=== PATIENT | female | born 1980 | race Caucasian/White ===

== ENCOUNTER 2017-05-16 18:59 | Emergency (ER) | payer MEDICAID ==
[2017-05-16 19:04] VITALS: BP 125/80
[2017-05-16] MEDS ORDERED: IBUPROFEN 600 MG TABLET PO ONE (19:14)
--- NOTE | 2017-05-16 19:20 | ER Document Report ---
ED Medical Screen (RME) - General Chief Complaint: Rib Pain Stated Complaint: FALL/RIB PAIN Time Seen by Provider: 05/16/17 19:07 Notes: The patient is a 36-year-old female, past medical history endometriosis, possible seizures, presents with right-sided chest and back pain after she tripped coming off the beach and landed on her cooler. Her daughter said that she lost consciousness and may have had a seizure after the injury. She did not hit her head and denies abdominal pain, shortness of breath, nausea, vomiting, difficulty walking, numbness, tingling or blurry vision. PE: NAD. Lungs CTAB. RRR. Superficial abrasions over left conte. I have greeted and performed a rapid initial assessment of this patient. A comprehensive ED assessment and evaluation of the patient, analysis of test results and completion of the medical decision making process will be conducted by additional ED providers. TRAVEL OUTSIDE OF THE [place] IN LAST 30 DAYS: No - Related Data Allergies/Adverse Reactions: lamotrigine [From Lamictal] Allergy (Verified 05/16/17 19:07) seizures, blisters in throat/mouth, rash Past Medical History - Social History Chew tobacco use (# tins/day): No Frequency of alcohol use: None Drug Abuse: None - Past Medical History Cardiac Medical History: Denies: Hx Coronary Artery Disease, Hx Heart Attack, Hx Hypertension Pulmonary Medical History: Denies: Hx Asthma, Hx Bronchitis, Hx COPD, Hx Pneumonia Neurological Medical History: Reports: Hx Seizures - Grand mal seizure x1 from allerigic reaction to lamictal. Denies: Hx Cerebrovascular Accident Renal/ Medical History: Denies: Hx Peritoneal Dialysis Musculoskeltal Medical History: Denies Hx Arthritis Past Surgical History: Reports: Hx Cholecystectomy - Immunizations Hx Diphtheria, Pertussis, Tetanus Vaccination: Yes Physical Exam - Vital signs Vitals: Temp Pulse Resp BP Pulse Ox 98.4 F 74 16 125/80 100 05/16/17 19:02 05/16/17 19:02 05/16/17 19:02 05/16/17 19:02 05/16/17 19:02 Course - Vital Signs Vital signs: Temp Pulse Resp BP Pulse Ox 98.4 F 74 16 125/80 100 05/16/17 19:02 05/16/17 19:02 05/16/17 19:02 05/16/17 19:02 05/16/17 19:02
[2017-05-16] MEDS ORDERED: LIDOCAINE 5% (700 MG) TRANSDERMAL ADH..PATCH TP ONE (19:47)
--- NOTE | 2017-05-16 19:47 | ER Document Report ---
ED General - General Mode of Arrival: Wheelchair Information source: Patient TRAVEL OUTSIDE OF THE [place] IN LAST 30 DAYS: No - HPI Onset: Just prior to arrival <NIKO MEJIA - Last Filed: 05/16/17 23:25> <NOEL GANNON - Last Filed: 05/16/17 23:32> - General Chief Complaint: Rib Pain Stated Complaint: FALL/RIB PAIN Time Seen by Provider: 05/16/17 19:07 - HPI Notes: Patient is a 36-year-old female presented emergency department for right-sided chest and back pain after a fall. Patient states that she was leaving the beach and she tripped when trying to go up stairs. Patient states that she fell into a cooler on the right side of her body. Patient was able to get up and make it to the parking lot however when she reached the parking lot she had a possible syncopal event. Patient was brought to the emergency department by her boyfriend and she states she was conscious for this. Patient's pain is sharp. Patient did not hit her head. Patient does have an abrasion over her left conte and she complains of some lightheadedness. Patient ate this morning and states she drank water at the beach. Patient has some increased pain with deep breathing. Patient denies any abdominal pain, nausea, vomiting, difficulty ambulating, tingling, blurry vision or other complaints. Patient is allergic to lamotrigine and states she had a seizure from taking this medication. Patient also has a history of POTS and endometriosis. (NIKO MEJIA) - Related Data Allergies/Adverse Reactions: lamotrigine [From Lamictal] Allergy (Verified 05/16/17 19:07) seizures, blisters in throat/mouth, rash Past Medical History - General Information source: Patient - Social History Smoking Status: Current Every Day Smoker Chew tobacco use (# tins/day): No Smoking Education Provided: Yes - > 5 minutes Frequency of alcohol use: None Drug Abuse: None - Past Medical History Cardiac Medical History: Denies: Hx Coronary Artery Disease, Hx Heart Attack, Hx Hypertension Pulmonary Medical History: Denies: Hx Asthma, Hx Bronchitis, Hx COPD, Hx Pneumonia Neurological Medical History: Reports: Hx Seizures - Grand mal seizure x1 from allerigic reaction to lamictal. Denies: Hx Cerebrovascular Accident Renal/ Medical History: Denies: Hx Peritoneal Dialysis Musculoskeltal Medical History: Denies Hx Arthritis Past Surgical History: Reports: Hx Cholecystectomy - Immunizations Hx Diphtheria, Pertussis, Tetanus Vaccination: Yes <NIKO MEJIA - Last Filed: 05/16/17 23:25> - Social History Family History: None <SANDRAMARCUSNOEL - Last Filed: 05/16/17 23:32> Review of Systems - Review of Systems Constitutional: No symptoms reported EENT: No symptoms reported Cardiovascular: See HPI, Chest pain Respiratory: No symptoms reported Gastrointestinal: No symptoms reported Genitourinary: No symptoms reported Female Genitourinary: No symptoms reported Musculoskeletal: See HPI, Back pain Skin: See HPI, Other - abrasion Hematologic/Lymphatic: No symptoms reported Neurological/Psychological: No symptoms reported -: Yes All other systems reviewed and negative <NIKO MEJIA - Last Filed: 05/16/17 23:25> Physical Exam - Vital signs Interpretation: Normal <NIKO MEJIA - Last Filed: 05/16/17 23:25> <NOEL GANNON - Last Filed: 05/16/17 23:32> - Vital signs Vitals: Temp Pulse Resp BP Pulse Ox 98.4 F 74 16 125/80 100 05/16/17 19:02 05/16/17 19:02 05/16/17 19:02 05/16/17 19:02 05/16/17 19:02 - Notes Notes: GENERAL: Alert, interacts well. No acute distress. HEAD: Normocephalic, atraumatic. EYES: Pupils equal, round, and reactive to light. Extraocular movements intact. ENT: Oral mucosa moist, tongue midline. NECK: Full range of motion. Supple. Trachea midline. LUNGS: Clear to auscultation bilaterally, no wheezes, rales, or rhonchi. No respiratory distress. Tenderness with palpation over the right mid clavicular line and rib #3. No ecchymosis or abrasions to the anterior chest. HEART: Regular rate and rhythm. No murmurs, gallops, or rubs. ABDOMEN: Soft, non-tender. Non-distended. Bowel sounds present in all 4 quadrants. BACK: Tenderness with palpation just laterally to the right side of the spine and around rib #4. EXTREMITIES: Moves all 4 extremities spontaneously. No edema, radial and dorsalis pedis pulses 2/4 bilaterally. No cyanosis. NEUROLOGICAL: Alert and oriented x3. Normal speech. PSYCH: Normal affect, normal mood. SKIN: Warm, dry, normal turgor. Superficial abrasion to the left calf, 12 cm long with no deformity. (NIKO MEJIA) Course <NIKO MEJIA - Last Filed: 05/16/17 23:25> <NOEL GANNON - Last Filed: 05/16/17 23:32> - Re-evaluation Re-evalutation: 05/16/17 20:39 No fractures and no pneumothorax is seen, pain treated with Lidoderm patch, consistent with bruised ribs. Abrasion on the left conte was cleaned and dressed with antibiotic ointment and gauze. Patient is discharged to home with muscle relaxers, ibuprofen and Lidoderm patches. Counseled on the need to take deep breaths to prevent pneumonia and atelectasis. (NOEL GANNON) - Vital Signs Vital signs: Temp Pulse Resp BP Pulse Ox 98.4 F 74 16 125/80 100 05/16/17 19:02 05/16/17 19:02 05/16/17 19:02 05/16/17 19:02 05/16/17 19:02 - EKG Interpretation by Me Additional EKG results interpreted by me: 05/16/17 20:42 EKG shows sinus rhythm at a rate of 61, normal axis, normal intervals, no ST segment elevations or depressions, there are T-wave inversions noted in V2 which are nonspecific per my interpretation. (NOEL GANNON) Discharge <NIKO MEJIA - Last Filed: 05/16/17 23:25> <NOEL GANNON - Last Filed: 05/16/17 23:32> - Discharge Clinical Impression: Abrasion, left lower leg, initial encounter, Tobacco abuse, Tobacco abuse counseling Contusion of rib on right side Qualifiers: Encounter type: initial encounter Qualified Code(s): S20.211A - Contusion of right front wall of thorax, initial encounter Condition: Stable Disposition: HOME, SELF-CARE Additional Instructions: Rib Contusion You have been diagnosed as having bruised ribs. It will usually take a few weeks for these injured ribs to heal. You should cough or take a deep breath at least every hour or two to prevent lung complications. You should not engage in any strenuous physical activity until released by your physician. The usual rule is "if it hurts, don' t do it." Return if you develop any of the following: (1) Fever or chills. (2) Persistent cough, coughing up blood, or shortness of breath. (3) Increasing pain. (4) Weakness, lightheadedness, or fainting. Abrasions An abrasion is a scraping injury of the skin. Some scarring may result. The seriousness of an abrasion is not always obvious at first. Hidden tissue damage may be present and infection may occur despite proper care. Complete healing may take from ten days to as long as a month. The healing time depends on the depth of the abrasion, and on the amount of crushing of underlying tissues from the injury. Keep the wound and dressing clean. Do not shower or bathe the area until okayed by the doctor. If the dressing gets wet, remove it and blot the wound dry, then reapply a clean dressing. Dressings should be changed every day. Sunscreen should be used for six months after the skin is healed. If any signs of infection occur (swelling, redness, increasing tenderness, red streaks, profuse purulent drainage from the abrasion, tender lumps in the armpit or groin above the abrasion, or fever), see the doctor immediately. Please use ibuprofen (Motrin or Advil) 600-800 mg every 8 hours as needed for pain. You may also use acetaminophen (Tylenol) 1000 mg every 4-6 hours as needed for pain. Please be aware that many medications contain acetaminophen, do not exceed a total of 1000 mg of acetaminophen every 6 hours. Prescriptions: Cyclobenzaprine HCl [Flexeril 10 mg Tablet] 10 mg PO TIDP PRN #15 tablet PRN Reason: Lidocaine [Lidoderm 5% (700 mg) Transdermal Patch] 1 patch TP DAILY #10 adh..patch Forms: Smoking Cessation Education Referrals: JIMY CABRERA NP-C [Primary Care Provider] - Follow up as needed [place] Attestation: 05/16/17 23:32 I personally performed the services described in the documentation, reviewed and edited the documentation which was dictated to the scribe in my presence, and it accurately records my words and actions. (NOEL GANNON) Scribe Documentation - Scribe Written by Scribe:: Taylor Hughes 05/16/2017 22:12 acting as scribe for :: Rosalio <NIKO MEJIA - Last Filed: 05/16/17 23:25>
--- NOTE | 2017-05-16 20:25 | RADIOLOGY REPORT (SQ) ---
EXAM DESCRIPTION: CHEST PA/LAT; RIBS RIGHT W/PA CHEST COMPLETED DATE/TIME: 05/16/2017 8:15 pm REASON FOR STUDY: fall, chest wall trauma; fell onR ribs, anterior, expiratory view too plz COMPARISON: None. NUMBER OF VIEWS: 5 TECHNIQUE: PA and lateral chest and 3 Images acquired of the right ribs in the area of focal concern . LIMITATIONS: None. FINDINGS: RIBS: No acute displaced fracture. No worrisome bone lesions. LUNGS: Limited exam. No obvious pneumothorax. No pleural effusion. OTHER: No other significant finding. IMPRESSION: No acute findings. COMMENT: SITE OF TRAUMA/COMPLAINT MARKED/STAMP COMPLETED: Yes TECHNICAL DOCUMENTATION: JOB ID: [id number] [employer]- All Rights Reserved
--- NOTE | 2017-05-16 20:25 | RADIOLOGY REPORT (SQ) ---
EXAM DESCRIPTION: CHEST PA/LAT; RIBS RIGHT W/PA CHEST COMPLETED DATE/TIME: 05/16/2017 8:15 pm REASON FOR STUDY: fall, chest wall trauma; fell onR ribs, anterior, expiratory view too plz COMPARISON: None. NUMBER OF VIEWS: 5 TECHNIQUE: PA and lateral chest and 3 Images acquired of the right ribs in the area of focal concern . LIMITATIONS: None. FINDINGS: RIBS: No acute displaced fracture. No worrisome bone lesions. LUNGS: Limited exam. No obvious pneumothorax. No pleural effusion. OTHER: No other significant finding. IMPRESSION: No acute findings. COMMENT: SITE OF TRAUMA/COMPLAINT MARKED/STAMP COMPLETED: Yes TECHNICAL DOCUMENTATION: JOB ID: [id number] [employer]- All Rights Reserved
--- NOTE | 2017-05-16 22:48 | EKG REPORT ---
SEVERITY:- BORDERLINE ECG - SINUS RHYTHM PROBABLE LEFT ATRIAL ABNORMALITY NONSPECIFIC ST-T CHANGES ANTERIOR LEADS : Confirmed by: Bridger Frias MD 16-May-2017 22:47:51
== END 2017-05-16 21:00 | disposition home or self-care (01) ==
LOC: ER 18:59
DX: S20.211A Contusion of right front wall of thorax, initial encounter (principal); S80.812A Abrasion, left lower leg, initial encounter; W10.9XXA Fall (on) (from) unspecified stairs and steps, initial encounter; Y93.89 Activity, other specified; Y92.832 Beach as the place of occurrence of the external cause; R07.81 Pleurodynia; M54.9 Dorsalgia, unspecified; R42 Dizziness and giddiness; F17.200 Nicotine dependence, unspecified, uncomplicated; Z71.6 Tobacco abuse counseling; Z88.8 Allergy status to other drugs, medicaments and biological substances
CPT/HCPCS: 93005; 99406; 99284; 81025; 71020; 71101; 93010; J3490 ×2

== ENCOUNTER 2017-10-27 13:17 | Emergency (ER) | payer MEDICAID ==
[2017-10-27 13:43] VITALS: BP 110/63
[2017-10-27] MEDS ORDERED: ONDANSETRON 4 MG TAB.RAPDIS PO ONE (14:46)
[2017-10-27] MEDS ORDERED: KETOROLAC TROMETHAMINE 60 MG/2 ML SDV IM ONE (14:46)
--- NOTE | 2017-10-27 14:48 | ER Document Report ---
ED Neck/Back Problem - General Chief Complaint: Back Pain Stated Complaint: BACK PAIN, NAUSEA, DIZZY Time Seen by Provider: 10/27/17 14:29 Mode of Arrival: Ambulatory Information source: Patient Notes: 37-year-old female presents to ED for complaint of left lower back pain since Tuesday. She also has burning frequency and urgency with urine. She has a history of fractured coccyx bulging disc and stenosis but she states this is not her normal pain. She is also complaining of nausea and dizziness. TRAVEL OUTSIDE OF THE [place] IN LAST 30 DAYS: No - HPI Patient complains to provider of: Pain, Lower back Onset: Other Onset: Gradual - Tuesday Timing: Still present Quality of pain: Sharp, Throbbing Severity: Moderate Pain Level: 4 Associated symptoms: Lower back pain, Other - Frequency urgency and burning with urination. denies: Constipation, Incontinence, Like prior neck/back pain, Radiation to leg, Unable to urinate Exacerbated by: Movement of trunk, Sitting position Relieved by: Nothing Similar symptoms previously: Yes Recently seen / treated by doctor: No - Related Data Allergies/Adverse Reactions: lamotrigine [From Lamictal] Allergy (Verified 10/27/17 14:41) seizures, blisters in throat/mouth, rash Past Medical History - General Information source: Patient - Social History Smoking Status: Current Every Day Smoker Cigarette use (# per day): Yes - Pack per day Chew tobacco use (# tins/day): No Smoking Education Provided: Yes - David Frequency of alcohol use: None Drug Abuse: None Occupation: None Lives with: Alone - Children Family History: Arthritis, DM, Hypertension, Malignancy. 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 Endocrine Medical History: Reports: None Renal/ Medical History: Reports: Hx Kidney Stones - Right, Hx Ovarian Cysts, Other - PC with endometriosis Malignancy Medical History: Reports: None Musculoskeltal Medical History: Reports Hx Arthritis, Reports Hx Fibromyalgia, Reports Hx Musculoskeletal Deformity, Reports Hx Musculoskeletal Trauma Skin Medical History: Reports None Psychiatric Medical History: Reports: Hx Bipolar Disorder Traumatic Medical History: Reports: Hx Fractures Infectious Medical History: Reports: None Past Surgical History: Reports: Hx Cholecystectomy, Hx Gynecologic Surgery - Endometriosis biopsies and removal of right cyst, Hx Mastectomy - Partial mastectomy due to mastitis, Hx Orthopedic Surgery - Shoulder reconstruction - Immunizations Hx Diphtheria, Pertussis, Tetanus Vaccination: Yes Review of Systems - Review of Systems Notes: Constitutional: [PRESENT: as per HPI. ABSENT: chills, fever(s), headache(s), weight gain, weight loss] Eyes: [ABSENT: visual disturbances] Ears: [ABSENT: hearing changes] Cardiovascular: [ABSENT: chest pain, dyspnea on exertion, edema, orthropnea, palpitations] Respiratory: [ABSENT: cough, hemoptysis] Gastrointestinal: [ABSENT: abdominal pain, constipation, diarrhea, hematemesis, hematochezia, vomiting] positive for nausea no vomiting Genitourinary: frequency urgency and burning with urination blood in the urine Musculoskeletal: [ABSENT: joint swelling] left low back pain up to flank Integumentary: [ABSENT: rash, wounds] Neurological: [ABSENT: abnormal gait, abnormal speech, confusion, dizziness, focal weakness, syncope] Psychiatric: [ABSENT: anxiety, depression, homicidal ideation, suicidal ideation ] Endocrine: [ABSENT: cold intolerance, heat intolerance, menstrual abnormalities , polydipsia, polyuria] Hematologic/Lymphatic: [ABSENT: easy bleeding, easy bruising, lymphadenopathy] Physical Exam - Vital signs Vitals: Temp Pulse Resp BP Pulse Ox 98.5 F 84 18 110/63 98 10/27/17 13:41 10/27/17 13:41 10/27/17 13:41 10/27/17 13:41 10/27/17 13:41 - Notes Notes: PHYSICAL EXAMINATION: GENERAL: Well-appearing, well-nourished and in no acute distress. HEAD: Atraumatic, normocephalic. EYES: Pupils equal round and reactive to light, extraocular movements intact, conjunctiva are normal. ENT: Nares patent, oropharynx clear without exudates. Moist mucous membranes. NECK: Normal range of motion, supple without lymphadenopathy LUNGS: Breath sounds clear to auscultation bilaterally and equal. No wheezes rales or rhonchi. HEART: Regular rate and rhythm without murmurs ABDOMEN: Soft, nontender, nondistended abdomen. No guarding, no rebound. No masses appreciated. Female : deferred Musculoskeletal: Normal range of motion, no pitting or edema. No cyanosis. Left low back pain up to flank area NEUROLOGICAL: Cranial nerves grossly intact. Normal speech, normal gait. Normal sensory, motor exams PSYCH: Normal mood, normal affect. SKIN: Warm, Dry, normal turgor, no rashes or lesions noted. Course - Re-evaluation Re-evalutation: 10/27/17 20:[address] discussed with patient. Patient was treated with Toradol Cipro and Flagyl and discharged home with prescription for Cipro Flagyl and Flexeril. Patient to follow-up with primary doctor to follow-up with CT report. Patient states she has a primary provider and will follow up by telephone. Patient was also given a [place] dispense pack for her pain. - Vital Signs Vital signs: Temp Pulse Resp BP Pulse Ox 98.5 F 84 18 110/63 98 10/27/17 13:41 10/27/17 13:41 10/27/17 13:41 10/27/17 13:41 10/27/17 13:41 - Laboratory Laboratory results interpreted by me: 10/27/17 15:40 Urine Blood SMALL H Ur Leukocyte Esterase SMALL H - Diagnostic Test Radiology reviewed: Image reviewed, Reports reviewed Discharge - Discharge Clinical Impression: kidney stone non-obstructing, Left flank pain Left low back pain Qualifiers: Chronicity: acute Sciatica presence: without sciatica Qualified Code(s): M54.5 - Low back pain Condition: Stable Disposition: HOME, SELF-CARE Additional Instructions: Flank Pain We weren't able to prove an exact cause for your flank pain. Pain in the flank can be caused by a muscle strain or spasm. Sometimes a kidney stone causes pain, but can't be found on our tests. Infection in the kidney should be evident on a urine test. Early shingles can occasionally cause flank pain, without the rash that proves the diagnosis. On rare occasions, disease of the pancreas, aorta, spleen, or colon can create pain in the flank. At this time, there's no evidence of a dangerous condition, and it seems safe for you to be at home. If the pain goes away and does not come back, no further testing will be needed. If pain persists, or becomes more severe, we may need to repeat some tests or order additional new testing. Blood in the urine, urgency to urinate frequently, and pain that radiates to the groin can indicate a kidney stone. Fever may mean that the pain is due to infection, either of the kidney or the colon (diverticulitis). If your pain is early shingles, you should develop an eruption of blisters in the painful area within a few days. Call the doctor or return if you have pain that is spreading or becoming more severe, pain that does not resolve with time, fever, or any other new symptoms. KIDNEY STONE: You have a nonobstructing kidney stone. It is still in your kidney and should not be causing you any pain. These stones are usually due to increased calcium or uric acid concentrations in your urine. Stones within the kidney itself are not painful. The pain occurs as the stone leaves the kidney to pass down the long tube, called the ureter, leading to the bladder. If the stone is small, it will usually pass by itself. Most patients can pass the stone at home. You will usually receive medications for pain, nausea or vomiting, and sometimes a medication to assist in passing the kidney stone. However, if the pain is very severe or if vomiting prevents you from taking oral pain medications, you may need to return for further treatment. Drink three or four quarts of fluids per day. You will be given pain medication (if needed) and urine strainers. Strain all your urine to see if the stone passes. If your doctor has asked you to bring the stone in for analysis, return with the stone once it has passed. Return if pain or vomiting become severe, if you develop a high fever, if you are unable to pass your urine, or if other unusual symptoms occur. TORADOL INJECTION: You have been given an injection of ketorolac tromethamine (Toradol). This is an excellent, safe drug for pain control. It also has potent antiinflammatory action. You should have significant pain relief within about one hour. Toradol is not addicting and is non-sedating. It does not interfere with driving or work. Call or return if you develop itching, hives, shortness of breath, or rash. ANTINAUSEA MEDICATION: You have been given a medication to suppress nausea and vomiting. This type of medication can be given as a shot, pill, or suppository. It will usually last for many hours. Pills and shots usually last six to eight hours, suppositories last about 12 hours. For the typical illness, only one or two doses of the medication may be necessary. Mild lightheadedness may occur. This type of medicine can cause drowsiness. Do not drive or operate dangerous machinery while under its influence. Do not mix with alcohol. See your doctor at once if you have muscle spasms or tightness, or uncontrollable motions (particularly of the neck, mouth, or jaw). Persistent vomiting or severe lightheadedness should also be evaluated by the physician. ORAL NARCOTIC MEDICATION: You have been given a [place] disp pack for pain control. This medication is a narcotic. It's best taken with food, as nausea can result if taken on an empty stomach. Don't operate machinery or drive within six hours of taking this medication. Do not combine this medicine with alcohol, or with any medication which can cause sedation (such as cold tablets or sleeping pills) unless you get permission from the physician. Narcotics tend to cause constipation. If possible, drink plenty of fluids and eat a diet high in fiber and fruits. Please be aware that prescription narcotics also have the potential for abuse. People become addicted to these medications because of the general sense of wellbeing that they induce. This feeling along with a significant reduction in tension, anxiety, and aggression provides a stimulating seductive quality to these drugs. Once your pain is under control, we encourage you to discard your unused narcotics. Muscle Relaxers Muscle relaxing medications are usually prescribed for acute muscle spasm or injury to the neck and back. They are often combined with antiinflammatory pain medication for increased relief. You may stop the muscle relaxer when the pain and stiffness have improved. Start the medication again if spasms recur. Muscle relaxers may cause drowsiness, especially with the first dose. Do not operate machinery or drive while under the effects of the medication. Most muscle relaxers last up to 24 hours. Do not combine the medication with alcohol. Your CT shows that there may be a focal thickening of the short segment of the small bowel on the left abdomen. You will be treated with some Flagyl and Cipro for this in case it is an infection. You will need to follow-up with your primary doctor by telephone tomorrow to schedule follow-up appointment. Ciprofloxacin You have been given an antibacterial agent, ciprofloxacin (Cipro). This medicine is not related to the penicillins, sulfas, cephalosporins, or tetracyclines. It is often given to patients who are allergic to these drugs. It has been chosen for you either because other drugs are not appropriate, or because of the nature of your problem. Cipro should not be taken with antacids, as these can decrease its effectiveness. It can be taken without regard to meals. CIPRO SHOULD NOT BE TAKEN BY CHILDREN, NURSING WOMEN, OR WOMEN. Although Cipro is usually well-tolerated, common side effects can include nausea and diarrhea. Contact your doctor if you experience any unusual symptoms while on this medication, such as joint pain or swelling, shortness of breath, wheezing, faintness, or hives. Metronidazole Metronidazole (Flagyl) has been prescribed. This medication is used to kill a type of bacteria called anaerobes, and protozoan parasites such as trichomonas and Giardia. Flagyl often causes a metallic taste in the mouth and mild nausea. Do not use alcohol in any form with Flagyl (including alcohol in medication elixirs). Flagyl interacts with alcohol to cause flushing, palpitations, headache, stomach cramps, and vomiting. Do not use Flagyl if you are taking Antabuse (disulfiram). Call the doctor at once if you develop rash, shortness of breath, itching, or lightheadedness. FOLLOW-UP CARE: If you have been referred to a physician for follow-up care, call the physician s office for an appointment as you were instructed or within the next two days. If you experience worsening or a significant change in your symptoms, notify the physician immediately or return to the Emergency Department at any time for re-evaluation. Prescriptions: Ciprofloxacin HCl [Cipro 500 mg Tablet] 500 mg PO BID #10 tablet Cyclobenzaprine HCl [Flexeril 10 mg Tablet] 10 mg PO TIDP PRN #15 tab PRN Reason: Metronidazole [Flagyl 500 mg Tablet] 500 mg PO BID #10 tablet
--- NOTE | 2017-10-27 16:36 | RADIOLOGY REPORT (SQ) ---
EXAM DESCRIPTION: CT LTD RENAL STONE PROTOCOL ON COMPLETED DATE/TIME: 10/27/2017 4:15 pm REASON FOR STUDY: right flank pain COMPARISON: None. TECHNIQUE: CT scan of the abdomen and pelvis performed without intravenous or oral contrast. Images reviewed with lung, soft tissue, and bone windows. Reconstructed coronal and sagittal MPR images revi ewed. All images stored on PACS. All CT scanners at this facility use dose modulation, iterative reconstruction, and/or weight based d osing when appropriate to reduce radiation dose to as low as reasonably achievable (ALARA). [facility]: Dose Right [facility]: CareDose [facility]: Dose Right [facility]: Teradose 4D [facility]: [employer] RADIATION DOSE: mGy. LIMITATIONS: None. FINDINGS: LOWER CHEST: No significant findings. No nodules or infiltrates. NON-CONTRASTED LIVER, SPLEEN, ADRENALS: Evaluation limited by lack of IV contrast. No identified sign ificant masses. PANCREAS: No masses. No peripancreatic inflammatory changes. GALLBLADDER: Status post cholecystectomy RIGHT KIDNEY AND URETER: No suspicious masses. Assessment limited by lack of IV contrast. No signif icant calcifications. No hydronephrosis or hydroureter. LEFT KIDNEY AND URETER: No suspicious masses. Assessment limited by lack of IV contrast. Small nono bstructing left renal calculus is identified. No definite ureteric calculi are identified. No hydr onephrosis or hydroureter. AORTA AND RETROPERITONEUM: No aneurysm. No retroperitoneal masses or adenopathy. There is some focal thickening of a short segment of small bowel in the left abdomen best seen on images number [id number] of the axial images of series 3. There appears to be a central component of focal fat. The differenti al possibilities would include normal peristalsis versus is a transient intussusception versus a poss ible mass. Small bowel series may be of value for further evaluation if clinically warranted. BOWEL AND PERITONEAL CAVITY: No obvious masses or inflammatory changes. No free fluid. APPENDIX: Normal. PELVIS, BLADDER, AND ABDOMINAL WALL:No abnormal masses. No free fluid. Bladder normal. BONES: No significant findings. OTHER: No other significant finding. IMPRESSION: Small nonobstructing left renal calculus. Focal thickening of a short segment of small bowel in left abdomen as noted above with differential possibilities as noted above. The small bowel series may be of value for further evaluation if clinically warranted. Other findings as noted abov e COMMENT: Quality ID # [id number]: Final reports with documentation of one or more dose reduction techniques (e.g., Automated exposure control, adjustment of the mA and/or kV according to patient size, use of iterative reconstruction technique) TECHNICAL DOCUMENTATION: JOB ID: [id number] [employer]- All Rights Reserved
[2017-10-27 16:37] LABS: APPEARANCE,URINE CLEAR; BILIRUBIN,URINE NEGATIVE (NEGATIVE); COLOR,URINE STRAW; GLUCOSE, URINE NEGATIVE (NEGATIVE); KETONES,URINE NEGATIVE (NEGATIVE); LEUKOCYTE ESTERASE,URINE SMALL (NEGATIVE); NITRITE,URINE NEGATIVE (NEGATIVE); PROTEIN,URINE NEGATIVE (NEGATIVE); URINE SPECIFIC GRAVITY 1.004; UROBILINOGEN,URINE NEGATIVE mg/dL (<2.0)
[2017-10-27] MEDS ORDERED: METRONIDAZOLE 500 MG TABLET PO ONE (16:48)
[2017-10-27] MEDS ORDERED: CYCLOBENZAPRINE HCL 10 MG TABLET PO ONE (16:48)
[2017-10-27] MEDS ORDERED: HYDROCODONE/ACETAMINOPHEN 5-325 MG (6 TAB/ER DISP) PO PRN (16:48)
[2017-10-27] MEDS ORDERED: CIPROFLOXACIN HCL 500 MG TABLET PO ONE (16:48)
[2017-10-27 17:54] LABS: CHLAM PCR NOT DETECTED (NOT DETECT); GON PCR NOT DETECTED (NOT DETECT)
== END 2017-10-27 17:15 | disposition home or self-care (01) ==
LOC: ER 13:17
DX: N20.0 Calculus of kidney (principal); M54.5 Low back pain; R10.9 Unspecified abdominal pain; R30.0 Dysuria; R35.0 Frequency of micturition; R39.15 Urgency of urination; R11.0 Nausea; R42 Dizziness and giddiness; F17.210 Nicotine dependence, cigarettes, uncomplicated; Z88.8 Allergy status to other drugs, medicaments and biological substances
CPT/HCPCS: 99284; 96372; 87086; 81025; 81001; 87491; 87591; 76380; J3490 ×2; J1885; S0119

== ENCOUNTER 2019-01-25 16:48 | Emergency (ER) | payer MEDICAID ==
--- NOTE | 2019-01-25 17:41 | ER Document Report ---
ED Medical Screen (RME) - General Chief Complaint: Anxiety Stated Complaint: CHEST PAIN Time Seen by Provider: 01/25/19 17:23 Mode of Arrival: Medic Information source: Patient Notes: Patient is a 38-year-old female presented to the emergency department with complaints of chest pain. Patient reports pain started at approximately 130 this afternoon and had associated palpitations and pain going up into the left side of her neck. She also reports bilateral leg throbbing. She is also complaining of numbness and tingling in her left arm and hand that has been intermittent. She states she has a history of endometriosis and PCOS and also thinks she may be anemic. She would like her iron levels checked. Patient appears to be very anxious. She does report a history of anxiety but states that that is not what is going on now. She also states that her hands are turning yellow and is requesting to have her liver levels checked. Exam: Heart sounds S1-S2 present with no ectopy noted. Lung sounds clear and equal bilaterally. Patient appears anxious. I have greeted and performed a rapid initial assessment of this patient. A comprehensive ED assessment and evaluation of the patient, analysis of test results and completion of the medical decision making process will be conducted by additional ED providers. Dictation of this chart was performed using voice recognition software; therefore, there may be some unintended grammatical errors. TRAVEL OUTSIDE OF THE [place] 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 Denies: Hx Cerebrovascular Accident Renal/ Medical History: Reports: Hx Kidney Stones - Right, Hx Ovarian Cysts. Denies: Hx Peritoneal Dialysis Musculoskeltal Medical History: Reports Hx Arthritis, Reports Hx Fibromyalgia, Reports Hx Musculoskeletal Deformity, Reports Hx Musculoskeletal Trauma Psychiatric Medical History: Reports: Hx Bipolar Disorder Traumatic Medical History: Reports: Hx Fractures Past Surgical History: Reports: Hx Cholecystectomy, Hx Gynecologic Surgery - Endometriosis biopsies and removal of right cyst, Hx Mastectomy - Partial mastectomy due to mastitis, Hx Orthopedic Surgery - Shoulder reconstruction - Immunizations Hx Diphtheria, Pertussis, Tetanus Vaccination: Yes Physical Exam - Vital signs Vitals: Temp Pulse Resp BP Pulse Ox 98 F 88 14 141/99 H 97 01/25/19 16:52 01/25/19 16:52 01/25/19 16:52 01/25/19 16:52 01/25/19 16:52 Course - Vital Signs Vital signs: Temp Pulse Resp BP Pulse Ox 98 F 88 14 141/99 H 97 01/25/19 16:52 01/25/19 16:52 01/25/19 16:52 01/25/19 16:52 01/25/19 16:52
[2019-01-25 18:02] LABS: ABSOLUTE BASOPHILS # (AUTO) 0.1 10^3/uL (0.0-0.2); ABSOLUTE EOSINOPHILS # (AUTO) 0.1 10^3/uL (0.0-0.6); ABSOLUTE MONOCYTES (AUTO) 0.5 10^3/uL (0.1-1.4); ABSOLUTE NEUT (AUTO) 9.1 10^3/uL (1.7-8.2); BASOPHILS % (AUTO) 0.6 % (0-2); EOSINOPHILS % (AUTO) 0.5 % (0-6); HEMATOCRIT 41.9 % (36.0-47.0); HEMOGLOBIN 14.3 g/dL (12.0-15.5); LYMPHOCYTES % (AUTO) 16.8 % (13-45); MEAN CORPUSCULAR HEMOGLOBIN 32.5 pg (27.0-33.4); MEAN CORPUSCULAR HGB CONC 34.2 g/dL (32.0-36.0); MEAN CORPUSCULAR VOLUME 95 fl (80-97); MONOCYTES % (AUTO) 4.4 % (3-13); PLATELET COUNT 296 10^3/uL (150-450); RED BLOOD COUNT 4.41 10^6/uL (3.72-5.28); RED CELL DISTRIBUTION WIDTH 13.1 % (11.5-14.0); SEGMENTED NEUTROPHILS % (AUTO) 77.7 % (42-78); TOTAL CELLS COUNTED % (AUTO) 100 %; WHITE BLOOD COUNT 11.7 10^3/uL (4.0-10.5)
--- NOTE | 2019-01-25 18:12 | RADIOLOGY REPORT (SQ) ---
EXAM DESCRIPTION: CHEST SINGLE VIEW COMPLETED DATE/TIME: 01/25/2019 5:50 pm REASON FOR STUDY: chest pain COMPARISON: 05/16/2017 EXAM PARAMETERS: NUMBER OF VIEWS: One view. TECHNIQUE: Single frontal radiographic view of the chest acquired. RADIATION DOSE: NA LIMITATIONS: None. FINDINGS: LUNGS AND PLEURA: No opacities, masses or pneumothorax. No pleural effusion. MEDIASTINUM AND HILAR STRUCTURES: No masses. Contour normal. HEART AND VASCULAR STRUCTURES: Heart normal in size. Normal vasculature. BONES: No acute findings. HARDWARE: None in the chest. OTHER: No other significant finding. IMPRESSION: NO ACUTE RADIOGRAPHIC FINDING IN THE CHEST. TECHNICAL DOCUMENTATION: JOB ID: [id number] [employer]- All Rights Reserved Reading location - IP/workstation name: [email or web address]
[2019-01-25 18:20] LABS: ALANINE AMINOTRANSFERASE 22 U/L (9-52); ALBUMIN 4.4 g/dL (3.5-5.0); ALKALINE PHOSPHATASE 58 U/L (38-126); ANION GAP 11 (5-19); ASPARTATE AMINO TRANSFERASE 21 U/L (14-36); BILIRUBIN,DIRECT 0.3 mg/dL (0.0-0.4); BILIRUBIN,TOTAL 0.5 mg/dL (0.2-1.3); BLOOD UREA NITROGEN 6 mg/dL (7-20); CALCIUM 9.8 mg/dL (8.4-10.2); CARBON DIOXIDE 21 mmol/L (22-30); CHLORIDE 110 mmol/L (98-107); GLUCOSE 101 mg/dL (75-110); POTASSIUM 4.1 mmol/L (3.6-5.0); SODIUM 142.3 mmol/L (137-145); TOTAL PROTEIN 7.2 g/dL (6.3-8.2)
--- NOTE | 2019-01-25 20:03 | EKG REPORT ---
SEVERITY:- BORDERLINE ECG - SINUS RHYTHM BORDERLINE T ABNORMALITIES, DIFFUSE LEADS : Confirmed by: Bridger Frias MD 25-Jan-2019 20:03:19
--- NOTE | 2019-01-25 23:50 | ER Document Report ---
ED General - General Chief Complaint: Anxiety Stated Complaint: CHEST PAIN Time Seen by Provider: 01/25/19 17:23 Mode of Arrival: Medic Information source: Patient Notes: This is a 38-year-old female with a history of migraines, endometriosis, who presents to the emergency room with palpitations, chest pain, shortness of breath. Patient states his symptoms started earlier this afternoon. She does smoke 1 pack/day. She is on Nexplanon. She denies any calf pain, swelling or tenderness. TRAVEL OUTSIDE OF THE [place] IN LAST 30 DAYS: No - HPI Onset: This afternoon Onset/Duration: Gradual Quality of pain: Sharp Severity: Moderate Pain Level: 2 Associated symptoms: Chest pain, Shortness of breath. denies: Fever Exacerbated by: Movement, Deep breathing, Other Relieved by: Denies Similar symptoms previously: No Recently seen / treated by doctor: No - Related Data Allergies/Adverse Reactions: lamotrigine [From Lamictal] Allergy (Verified 01/25/19 16:50) seizures, blisters in throat/mouth, rash Past Medical History - General Information source: Patient - Social History Smoking Status: Current Every Day Smoker Cigarette use (# per day): Yes Chew tobacco use (# tins/day): No - 1 pack/day Smoking Education Provided: No Frequency of alcohol use: None Drug Abuse: None Lives with: Family Family History: Arthritis, DM, Hypertension, Malignancy. 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 Denies: Hx Cerebrovascular Accident Renal/ Medical History: Reports: Hx Kidney Stones - Right, Hx Ovarian Cysts. Denies: Hx Peritoneal Dialysis Musculoskeletal Medical History: Reports Hx Arthritis, Reports Hx Fibromyalgia, Reports Hx Musculoskeletal Deformity, Reports Hx Musculoskeletal Trauma Psychiatric Medical History: Reports: Hx Bipolar Disorder Traumatic Medical History: Reports: Hx Fractures Past Surgical History: Reports: Hx Cholecystectomy, Hx Gynecologic Surgery - Endometriosis biopsies and removal of right cyst, Hx Mastectomy - Partial mastectomy due to mastitis, Hx Orthopedic Surgery - Shoulder reconstruction - Immunizations Hx Diphtheria, Pertussis, Tetanus Vaccination: Yes Review of Systems - Review of Systems Constitutional: denies: Chills, Fever EENT: No symptoms reported Cardiovascular: See HPI Respiratory: No symptoms reported Gastrointestinal: See HPI Genitourinary: No symptoms reported Female Genitourinary: No symptoms reported Musculoskeletal: See HPI Skin: No symptoms reported Hematologic/Lymphatic: No symptoms reported Neurological/Psychological: No symptoms reported Physical Exam - Vital signs Vitals: Temp Pulse Resp BP Pulse Ox 98 F 88 14 141/99 H 97 01/25/19 16:52 01/25/19 16:52 01/25/19 16:52 01/25/19 16:52 01/25/19 16:52 Notes: Physical exam: GENERAL: Patient is alert and oriented x3, no acute distress. HEAD: Atraumatic, normocephalic. EYES: Pupils equal round and reactive to light, extraocular movements intact, sclera anicteric, conjunctiva are normal. ENT: TMs normal, nares patent, oropharynx clear without exudates. Moist mucous membranes. NECK: Normal range of motion, supple without obvious mass or JVD. LUNGS: Breath sounds clear to auscultation bilaterally and equal. No wheezes rales or rhonchi. HEART: Regular rate and rhythm without murmurs, rubs or gallops. Chest wall: Patient does have tenderness over the chest wall ABDOMEN: Soft, normoactive bowel sounds. No tenderness to palpation. No guarding, no rebound. No masses appreciated. EXTREMITIES: Normal range of motion, no pitting or edema. No clubbing or cyanosis. NEUROLOGICAL: Cranial nerves II through XII grossly intact. Normal speech, moving all extremities. PSYCH: Normal mood, normal affect. SKIN: Warm, Dry, normal turgor, no rashes or lesions noted. Course - Re-evaluation Re-evalutation: 01/26/19 02:04 Vision observed several hours in the emergency room. Is remained stable. EKG is nonacute. Repeat troponins have been negative. CTA shows no pulmonary emboli. I did discuss with her the risks of pulmonary emboli with smoking and hormonal therapy. - Vital Signs Vital signs: Temp Pulse Resp BP Pulse Ox 98 F 88 14 141/99 H 97 01/25/19 16:52 01/25/19 16:52 01/25/19 16:52 01/25/19 16:52 01/25/19 16:52 - Laboratory Result Diagrams: 01/25/19 17:45 01/25/19 17:45 Laboratory results interpreted by me: 01/25/19 01/25/19 17:45 17:45 WBC 11.7 H Absolute Neutrophils 9.1 H Chloride 110 H Carbon Dioxide 21 L BUN 6 L - Diagnostic Test Radiology reviewed: Image reviewed, Reports reviewed - CTA of the chest shows no pulmonary emboli - EKG Interpretation by Me Rate: Normal Rhythm: NSR - EKG shows normal sinus rhythm with a ventricular rate of 88, no acute ST-T wave changes Discharge - Discharge Clinical Impression: Chest wall pain Condition: Stable Disposition: HOME, SELF-CARE Additional Instructions: As discussed, your heart tests and EKG look good today. The CT showed no evidence of blood clots. It is important to note that the combination of smoking and hormones (Nexplanon) will increase your risks of blood clots. I would strongly recommend you stop 1 of the other. Follow-up with your primary care doctor. You can take ibuprofen for pain. Return to the emergency room for worsening pain, shortness of breath or any concerns or getting worse.
[2019-01-25] MEDS ORDERED: LORAZEPAM 1 MG TABLET PO ONE (23:52)
[2019-01-26 01:02] LABS: FREE T3 3.67 pg/mL (2.77-5.27); FREE T4 (FREE THYROXINE) 0.91 ng/dL (0.78-2.19)
[2019-01-26 01:16] LABS: THYROID STIMULATING HORMONE 2.59 uIU/mL (0.47-4.68)
--- NOTE | 2019-01-26 01:24 | RADIOLOGY REPORT (SQ) ---
EXAM DESCRIPTION: CT CHEST ANGIOGRAPHY WITHOUT THEN WITH IV CONTRAST COMPLETED DATE/TME: 01/25/2019 23:51 CLINICAL HISTORY: 38 years, Female, cp COMPARISON: CT abdomen October 27, 2017. TECHNIQUE: Axial images through the chest were performed after the administration of intravenous contrast using a pulmonary embolus protocol. MIPS were performed. This exam was performed according to our departmental dose-optimization program which includes use of Automated Exposure Control, adjustment of the mA and/or kV according to patient size and/or use of iterative reconstruction technique. FINDINGS: No pulmonary embolus is identified. Normal caliber aorta without dissection. No pericardial effusion. No pleural effusion. Small bulla in the right lung base is unchanged. No focal lung consolidation. No pneumothorax. Patent central airway. Soft tissues are unremarkable. No acute osseous findings. No acute abnormality within the visualized upper abdomen. IMPRESSION: No pulmonary embolus.
[2019-01-26 02:21] VITALS: BP 99/65
== END 2019-01-26 02:22 | disposition home or self-care (01) ==
LOC: ER 16:48
DX: R07.89 Other chest pain (principal); R00.2 Palpitations; R06.02 Shortness of breath; F17.210 Nicotine dependence, cigarettes, uncomplicated; Z97.5 Presence of (intrauterine) contraceptive device; Z88.8 Allergy status to other drugs, medicaments and biological substances
CPT/HCPCS: 36415; 71045; 71275; 80053; 84439; 84443; 84481; 84484; 85025; 93005; 93010; 99284

== ENCOUNTER 2020-08-04 12:20 | Emergency (ER) | payer MEDICAID ==
--- NOTE | 2020-08-04 13:15 | ER Document Report ---
ED Medical Screen (RME) - General Chief Complaint: Abdominal Pain Stated Complaint: FLANK PAIN TINGLING IN LIMBS NAUSEA Time Seen by Provider: 08/04/20 13:08 TRAVEL OUTSIDE OF THE [place] IN LAST 30 DAYS: No - HPI Notes: Patient is a 40-year-old female with a history of cholecystectomy who presents with upper abdominal pain that began at 10 AM this morning. Patient reports nausea and diarrhea but denies vomiting and fever. She also reports low back pain that is a burning sensation but she has a history of sciatica, lumbar stenosis and bulging disks. - Related Data Allergies/Adverse Reactions: lamotrigine [From Lamictal] Allergy (Verified 08/04/20 13:03) seizures, blisters in throat/mouth, rash Home Medications: trazadone, sertrizine. Past Medical History - Social History Frequency of alcohol use: Occasional - Past Medical History Cardiac Medical History: Denies: Hx Coronary Artery Disease, Hx Heart Attack, Hx Hypertension Pulmonary Medical History: Denies: Hx Asthma, Hx Bronchitis, Hx COPD, Hx Pneumonia Neurological Medical History: Reports: Hx Seizures - Grand mal seizure x1 from allerigic reaction to lamictal. Denies: Hx Cerebrovascular Accident Renal/ Medical History: Reports: Hx Kidney Stones - Right, Hx Ovarian Cysts. Denies: Hx Peritoneal Dialysis Musculoskeltal Medical History: Reports Hx Arthritis, Reports Hx Fibromyalgia, Reports Hx Musculoskeletal Deformity, Reports Hx Musculoskeletal Trauma Psychiatric Medical History: Reports: Hx Bipolar Disorder Traumatic Medical History: Reports: Hx Fractures Past Surgical History: Reports: Hx Cholecystectomy, Hx Gynecologic Surgery - Endometriosis biopsies and removal of right cyst, Hx Mastectomy - Partial mastectomy due to mastitis, Hx Orthopedic Surgery - Shoulder reconstruction - Immunizations Hx Diphtheria, Pertussis, Tetanus Vaccination: Yes Physical Exam - Vital signs Vitals: Temp Pulse Resp BP Pulse Ox 98.2 F 91 20 130/97 H 97 08/04/20 12:28 08/04/20 12:28 08/04/20 12:28 08/04/20 12:28 08/04/20 12:28 - Abdominal Inspection: Normal Tenderness: Tender - Midepigastric and right upper quadrant Course - Re-evaluation Re-evalutation: I have greeted and performed a rapid initial assessment of this patient. A comprehensive ED assessment and evaluation of the patient, analysis of test results and completion of medical decision making process will be conducted by an additional ED providers. - Vital Signs Vital signs: Temp Pulse Resp BP Pulse Ox 98.2 F 91 20 130/97 H 97 08/04/20 12:28 08/04/20 12:28 08/04/20 12:28 08/04/20 12:28 08/04/20 12:28
[2020-08-04] MEDS ORDERED: NORMAL SALINE 1000 ML 1,000 ML IV ONE (13:49)
[2020-08-04 13:50] LABS: APPEARANCE,URINE CLEAR; BILIRUBIN,URINE NEGATIVE (NEGATIVE); COLOR,URINE COLORLESS; GLUCOSE, URINE NEGATIVE (NEGATIVE); KETONES,URINE TRACE mg/dL (NEGATIVE); LEUKOCYTE ESTERASE,URINE NEGATIVE (NEGATIVE); NITRITE,URINE NEGATIVE (NEGATIVE); PROTEIN,URINE NEGATIVE (NEGATIVE); URINE SPECIFIC GRAVITY 1.001; UROBILINOGEN,URINE NEGATIVE mg/dL (<2.0)
[2020-08-04] MEDS ORDERED: KETOROLAC TROMETHAMINE INJ/PF 30 MG/1 ML SDV IV ONE (13:50)
[2020-08-04] MEDS ORDERED: ONDANSETRON HCL INJ/PF 4 MG/2 ML SDV IV ONE (13:50)
[2020-08-04 13:51] LABS: ABSOLUTE LYMPHOCYTES (AUTO) 1.7 10^3/uL (0.5-4.7); ABSOLUTE MONOCYTES (AUTO) 0.6 10^3/uL (0.1-1.4); ABSOLUTE NEUT (AUTO) 11.3 10^3/uL (1.7-8.2); BASOPHILS % (AUTO) 0.3 % (0-2); EOSINOPHILS % (AUTO) 0.1 % (0-6); HEMATOCRIT 41.2 % (36.0-47.0); HEMOGLOBIN 14.2 g/dL (12.0-15.5); LYMPHOCYTES % (AUTO) 12.6 % (13-45); MEAN CORPUSCULAR HGB CONC 34.4 g/dL (32.0-36.0); MEAN CORPUSCULAR VOLUME 93 fl (80-97); MONOCYTES % (AUTO) 4.5 % (3-13); PLATELET COUNT 305 10^3/uL (150-450); RED BLOOD COUNT 4.42 10^6/uL (3.72-5.28); RED CELL DISTRIBUTION WIDTH 12.8 % (11.5-14.0); SEGMENTED NEUTROPHILS % (AUTO) 82.5 % (42-78); TOTAL CELLS COUNTED % (AUTO) 100 %; WHITE BLOOD COUNT 13.7 10^3/uL (4.0-10.5)
--- NOTE | 2020-08-04 13:56 | ER Document Report ---
ED General - General Chief Complaint: Abdominal Pain Stated Complaint: FLANK PAIN TINGLING IN LIMBS NAUSEA Time Seen by Provider: 08/04/20 13:08 TRAVEL OUTSIDE OF THE [place] IN LAST 30 DAYS: No - HPI Notes: Chief complaint: Abdominal pain, nausea/vomiting and left lumbar pain HPI: 40-year-old female with 1 day history of epigastric discomfort, nausea/vomiting and burning discomfort left flank area. Patient says she has a previous history of sciatica. She denies any new trauma. She denies fever chills. She denies skin rashes. Denies dysuria or gross hematuria. She repo rts a past history of a kidney stone several years ago. Previous cholecystectomy. Last menses 3 weeks ago described as normal. - Related Data Allergies/Adverse Reactions: lamotrigine [From Lamictal] Allergy (Verified 08/04/20 13:03) seizures, blisters in throat/mouth, rash Home Medications: trazadone, sertrizine. Past Medical History - General Information source: Patient, [facility] Records - Social History Smoking Status: Current Every Day Smoker Frequency of alcohol use: Occasional Drug Abuse: None Lives with: Family Family History: Arthritis, DM, Hypertension, Malignancy. denies: CAD, COPD, CVA, Hyperlipidemia, Thyroid Disfunction Patient has homicidal ideation: No - Past Medical History Cardiac Medical History: Denies: Hx Coronary Artery Disease, Hx Heart Attack, Hx Hypertension Pulmonary Medical History: Denies: Hx Asthma, Hx Bronchitis, Hx COPD, Hx Pneumonia Neurological Medical History: Reports: Hx Seizures - Grand mal seizure x1 from allerigic reaction to lamictal. Denies: Hx Cerebrovascular Accident Renal/ Medical History: Reports: Hx Kidney Stones - Right, Hx Ovarian Cysts. Denies: Hx Peritoneal Dialysis Malignancy Medical History: Reports: None Musculoskeletal Medical History: Reports Hx Arthritis, Reports Hx Fibromyalgia, Reports Hx Musculoskeletal Deformity, Reports Hx Musculoskeletal Trauma Psychiatric Medical History: Reports: Hx Bipolar Disorder Traumatic Medical History: Reports: Hx Fractures Past Surgical History: Reports: Hx Cholecystectomy, Hx Gynecologic Surgery - Endometriosis biopsies and removal of right cyst, Hx Mastectomy - Partial mastectomy due to mastitis, Hx Orthopedic Surgery - Shoulder reconstruction - Immunizations Hx Diphtheria, Pertussis, Tetanus Vaccination: Yes Review of Systems - Review of Systems Notes: Constitutional: Negative for fever. HENT: Negative for sore throat. Eyes: Negative for visual changes. Cardiovascular: Negative for chest pain. Respiratory: Negative for shortness of breath. Gastrointestinal: As per HPI. Genitourinary: As per HPI. Musculoskeletal: As per HPI. Skin: Negative for rash. Neurological: Negative for headaches, focal weakness or numbness. 10 point ROS negative except as marked above and in HPI. Physical Exam - Vital signs Vitals: Temp Pulse Resp BP Pulse Ox 98.2 F 91 20 130/97 H 97 08/04/20 12:28 08/04/20 12:28 08/04/20 12:28 08/04/20 12:28 08/04/20 12:28 - Notes Notes: GENERAL: Middle-age female who appears somewhat restless and uncomfortable holding left flank area. SKIN: Good turgor no rashes. HEAD: Normocephalic atraumatic. EYES: PERRLA. EOMI. Conjunctivae and sclerae clear. EARS: CANALS AND TMS CLEAR. NOSE: CLEAR. MOUTH: Moist mucosa. Good dentition. No stridor or edema. No drooling. NECK: Supple. No masses or thyromegaly. No adenopathy. Carotids 2+ without bruits. No JVD. BACK: Symmetrical without tenderness. CHEST: Respirations unlabored. Breath sounds clear and symmetrical. HEART: Regular rhythm. No murmur gallop or rub. ABDOMEN: Mild tenderness to palpation in epigastrium and left upper quadrant. Soft without masses, organomegaly or rebound. Bowel sounds normally active. No bruits. GENITALIA: Deferred. EXTREMITIES: No edema. No calf tenderness. Cap refill less than 1.5 seconds. Dorsalis pedis and posterior tibial pulses 3+ and symmetrical. NEUROLOGICAL: GCS 15. Alert and oriented x3. Fluent speech. Cranial nerves II through XII intact. Sensorimotor and cerebellar normal. Normal tone. PSYCHIATRIC: Anxious affect. Course - Re-evaluation Re-evalutation: 08/04/20 18:50 Patient's white blood cell count is elevated around 13.8. Her abdominal exam is benign. Her urine is unremarkable. CT abdomen pelvis without contrast did not show any acute findings per radiologist. Her comprehensive metabolic profile is unremarkable. Patient complained bitterly about burning discomfort in the left sacroiliac area. I do not see any skin rashes. She said has had chronic problems with lower back pain. She denies any recent spinal injections. In view of the pattern of pain and lack of radicular findings as well as elevated white count I was concerned still about the possibility of an epidural abscess or discitis. We obtained MRI of lumbar spine and this showed only some p reviously identified spondylosis which is progressed since previous study of 2016. I think patient is stable for follow-up with her primary care provider may ultimately need to be seen by a energy conservation specialist or pain management physician. Findings, clinical impression and plan of treatment have been discussed with patient/family. Understanding of current findings and recommendations has been acknowledged by them and there is agreement regarding disposition and follow-up. - Vital Signs Vital signs: Temp Pulse Resp BP Pulse Ox 98.2 F 91 20 130/97 H 97 08/04/20 12:28 08/04/20 12:28 08/04/20 12:28 08/04/20 12:28 08/04/20 12:28 - Laboratory Result Diagrams: 08/04/20 13:22 08/04/20 13:22 Laboratory results interpreted by me: 08/04/20 08/04/20 08/04/20 13:22 13:22 13:22 WBC 13.7 H Lymph % (Auto) 12.6 L Absolute Neuts (auto) 11.3 H Seg Neutrophils % 82.5 H Chloride 109 H Carbon Dioxide 18 L BUN 5 L Urine Ketones TRACE H Urine Blood SMALL H - Diagnostic Test Radiology reviewed: Image reviewed, Reports reviewed Radiology results interpreted by me: 08/04/20 18:48 Abdomen/Pelvis CT 08/04/20 13:50 IMPRESSION: 1. Small hypoattenuating area in the uterus close to the cervix most likely nabothian cyst. No other significant findings in the abdomen or pelvis. Lumbar Spine MRI 08/04/20 15:26 IMPRESSION: No evidence of epidural mass or abscess. Background of mild multilevel spondylotic changes appears somewhat progressed relative to 2016 MR imaging. Discharge - Discharge Clinical Impression: Lumbar spondylosis Low back pain Qualifiers: Chronicity: acute Back pain laterality: left Sciatica presence: unspecified whether sciatica present Qualified Code(s): M54.5 - Low back pain Condition: Stable Disposition: HOME, SELF-CARE Additional Instructions: Take prescribed medication as directed. Follow-up with your primary care physician and discuss referral to energy conservation specialist and/or paint roller covers supervisor regarding your back problems. Return to emergency department as needed for new or worsening symptoms. Prescriptions: Oxycodone HCl/Acetaminophen [Percocet 5-325 mg Tablet] 1 tab PO Q4H PRN #15 tablet PRN Reason: Referrals: [facility] [Provider Group] - Follow up as needed
[2020-08-04 14:01] LABS: ALBUMIN 4.4 g/dL (3.5-5.0); ALKALINE PHOSPHATASE 65 U/L (38-126); ANION GAP 14 (5-19); ASPARTATE AMINO TRANSFERASE 20 U/L (14-36); BILIRUBIN,DIRECT 0.1 mg/dL (0.0-0.4); BILIRUBIN,TOTAL 0.4 mg/dL (0.2-1.3); BLOOD UREA NITROGEN 5 mg/dL (7-20); CALCIUM 9.6 mg/dL (8.4-10.2); CARBON DIOXIDE 18 mmol/L (22-30); CHLORIDE 109 mmol/L (98-107); GLUCOSE 101 mg/dL (75-110); POTASSIUM 3.8 mmol/L (3.6-5.0); TOTAL PROTEIN 7.1 g/dL (6.3-8.2)
--- NOTE | 2020-08-04 15:16 | RADIOLOGY REPORT (SQ) ---
EXAM DESCRIPTION: CT ABD/PELVIS WITH IV ONLY IMAGES COMPLETED DATE/TIME: 08/04/2020 3:05 pm REASON FOR STUDY: epigastric and left flank pain COMPARISON: 10/27/2017 TECHNIQUE: CT scan of the abdomen and pelvis performed using helical scanning technique with dynamic intravenous contrast injection. No oral contrast. Images reviewed with lung, soft tissue, and bone windows. Reconstructed coronal and sagittal MPR images reviewed. Delayed images for evaluation of the urinary system also acquired. All images stored on PACS. All CT scanners at this facility use dose modulation, iterative reconstruction, and/or weight based d osing when appropriate to reduce radiation dose to as low as reasonably achievable (ALARA). [facility]: Dose Right [facility]: CareDose [facility]: Dose Right [facility]: Teradose 4D [facility]: GREE CONTRAST TYPE AND DOSE: contrast/concentration: Isovue 350.00 mmol/ml; Total Contrast Delivered: 100 .0 ml; Total Saline Delivered: 72.0 ml RENAL FUNCTION: BUN 5, creatinine 0.64 RADIATION DOSE: CT Rad equipment meets quality standard of care and radiation dose reduction techniq ues were employed. CTDIvol: NaN - NaN mGy. DLP: 0 mGy-cm.. LIMITATIONS: None. FINDINGS: LOWER CHEST: No significant findings. No nodules or infiltrates. LIVER: Normal size. No masses. No dilated ducts. Decreased attenuation consistent with mild steatos is. SPLEEN: Normal size. No focal lesions. PANCREAS: No masses. No significant calcifications. No adjacent inflammation or peripancreatic fluid collections. Pancreatic duct not dilated. GALLBLADDER: Surgically absent. ADRENAL GLANDS: No significant masses or asymmetry. RIGHT KIDNEY AND URETER: No solid masses. No significant calcifications. No hydronephrosis or hyd roureter. LEFT KIDNEY AND URETER: No solid masses. No significant calcifications. No hydronephrosis or hydr oureter. AORTA AND VESSELS: No aneurysm. No dissection. Renal arteries, SMA, celiac without stenosis. RETROPERITONEUM: No retroperitoneal adenopathy, hemorrhage or masses. BOWEL AND PERITONEAL CAVITY: No masses or inflammatory changes. No free fluid or peritoneal masses. APPENDIX: Normal. PELVIS: Focal area of decreased attenuation in the pelvis. This is in close proximity to the cervix and could represent prominent nabothian cyst. No other significant findings. There is a small right ovarian cyst. ABDOMINAL WALL: No masses. No hernias. BONES: No significant or acute findings. OTHER: No other significant finding. IMPRESSION: 1. Small hypoattenuating area in the uterus close to the cervix most likely nabothian cy st. No other significant findings in the abdomen or pelvis. TECHNICAL DOCUMENTATION: JOB ID: [id number] Quality ID # [id number]: Final reports with documentation of one or more dose reduction techniques (e.g., Au tomated exposure control, adjustment of the mA and/or kV according to patient size, use of iterative reconstruction technique) 2010 [employer]- All Rights Reserved Reading location - IP/workstation name: [email or web address]
[2020-08-04] MEDS ORDERED: MORPHINE SULFATE 10 MG/ML INJ IV ONE ×2 (15:27→17:29)
[2020-08-04] MEDS ORDERED: METOCLOPRAMIDE HCL INJ/PF 10 MG/2 ML SDV IV ONE (15:28)
[2020-08-04 15:55] LABS: URINE AMPHETAMINES SCREEN NEGATIVE; URINE BARBITURATES SCREEN NEGATIVE; URINE BENZODIAZEPINES SCREEN NEGATIVE; URINE COCAINE SCREEN NEGATIVE; URINE MARIJUANA (THC) SCREEN NEGATIVE; URINE METHADONE SCREEN NEGATIVE; URINE PHENCYCLIDINE SCREEN NEGATIVE
--- NOTE | 2020-08-04 18:21 | RADIOLOGY REPORT (SQ) ---
EXAM DESCRIPTION: MRI LUMBAR SPINE COMBO IMAGES COMPLETED DATE/TIME: 08/04/2020 5:50 pm REASON FOR STUDY: lumbar pain, nausea, WBC up, r/o epidural abscess COMPARISON: CT 08/04/2020 and MRI 07/05/2016 TECHNIQUE: Sagittal and Axial imaging includes T1, T1 post gadolinium, T2, STIR and gradient echo se quences. Coronal T2/HASTE imaging. CONTRAST TYPE AND DOSE: 20 mL Prohance. RENAL FUNCTION: Not indicated. ACR Type II contrast agent associated with few, if any, unconfounded cases of NSF LIMITATIONS: None. FINDINGS: VISUALIZED UPPER ABDOMEN: Limited evaluation. No acute or suspicious findings suggested. SEGMENTATION: No transitional anatomy. The lowest well-developed disc space is labeled L5-S1. ALIGNMENT: Anatomic. VERTEBRAE: Intact. No fractures. BONE MARROW: Normal. No marrow replacement or reactive changes. DISC SIGNAL: Normal. No significant abnormal signal or loss of height. POSTERIOR ELEMENTS: Generally intact. No pars defect evident. HARDWARE: None in the spine. CORD AND CONUS: Normal in size and signal intensity. Conus at the appropriate level. SOFT TISSUES: No aortic aneurysm seen. No bulky retroperitoneal adenopathy or mass. No paraspinal mas s or fluid. L1-L2: No significant spinal stenosis or exit foraminal stenosis. L2-L3: No significant spinal stenosis or exit foraminal stenosis. L3-L4: Facet arthropathy results in mild left neural foraminal narrowing. The central canal and righ t neural foramen remain patent. L4-L5: Shallow broad-based posterior disc bulge in the setting of facet arthropathy results in mild b ilateral neural foraminal narrowing, by with the appearance of anterior and posterior contact with th e exiting L4 nerve roots. The central canal remains patent. L5-S1: Circumferential disc bulge appears to be progressed in the study interval. This combines with facet arthropathy to result in mild mild left greater than right neural foraminal narrowing. The ce ntral canal remains patent. . LOWER THORACIC: Incompletely imaged. No stenosis seen. SACRUM: Visualized upper sacrum intact. ENHANCEMENT: No abnormal enhancement. OTHER: No other significant findings. IMPRESSION: No evidence of epidural mass or abscess. Background of mild multilevel spondylotic heller ges appears somewhat progressed relative to 2016 MR imaging. TECHNICAL DOCUMENTATION: JOB ID: [id number] [employer]- All Rights Reserved Reading location - IP/workstation name: [email or web address]
[2020-08-04] MEDS ORDERED: OXYCODONE-ACETAMINOPHEN 5-325 MG TABLET PO ONE (18:50)
[2020-08-04 19:03] VITALS: BP 104/69
== END 2020-08-04 19:02 | disposition home or self-care (01) ==
LOC: ER 12:20
DX: M47.816 Spondylosis without myelopathy or radiculopathy, lumbar region (principal); M54.5 Low back pain; R10.13 Epigastric pain; R11.2 Nausea with vomiting, unspecified; F17.200 Nicotine dependence, unspecified, uncomplicated; Z90.49 Acquired absence of other specified parts of digestive tract
CPT/HCPCS: 96376; 99285; 96361; 96374; 96375; 36415; 83690; 84703; 85025; 80053; 81001; 80307; 72158; 74177; A9576; J1885; J2765; J2270; J2405; J7030

== ENCOUNTER → 2020-09-02 | Outpatient (CLI) | payer MEDICAID ==
--- NOTE | 2020-09-02 14:54 | WOMENS IMAGING REPORT ---
EXAM DESCRIPTION: BILAT DIAGNOSTIC MAMMO W/CAD; U/S BREAST UNILATERAL, COMPL IMAGES COMPLETED DATE/TIME: 09/02/2020 12:41 pm; 09/02/2020 1:42 pm REASON FOR STUDY: N63.20 UNSPECIFIED LUMP IN THE LEFT BREAST, UNSPECIFIED QUADRANT; LT BREAST N63.20 N63.20 UNSPECIFIED LUMP IN THE LEFT BREAST, UNSPECIFIED QUAD N94.10 UNSPECIFIED DYSPAREUNIA COMPARISON: None. EXAM PARAMETERS: Standard craniocaudal and mediolateral oblique views of each breast recorded using digital acquisition. Spot compression CC images of both breasts and true lateral and spot compression lateral images of th e left breast acquired. Read with the assistance of CAD: .[employer] - [employer] Administrative Assistant Version 9.2 LIMITATIONS: None. FINDINGS: RIGHT BREAST MASSES: No suspicious masses. CALCIFICATIONS: No new or suspicious calcifications. ARCHITECTURAL DISTORTION: None. ASYMMETRY: None noted. OTHER: No other significant findings. LEFT BREAST MASSES: No suspicious masses. CALCIFICATIONS: No new or suspicious calcifications. ARCHITECTURAL DISTORTION: None. ASYMMETRY: None noted. OTHER: No other significant finding. BREAST ULTRASOUND: TECHNIQUE: Static and dynamic grayscale images acquired of the entire left breast. Selected color Do ppler images recorded. ELASTOGRAPHY PERFORMED: No. LIMITATIONS: None. FINDINGS: MASS: No mass identified. Normal glandular tissue. ELASTOGRAPHY CHARACTERISTICS:Not applicable. OTHER: No other significant finding. IMPRESSION: Negative bilateral mammogram and left breast ultrasound. No worrisome mammographic or s onographic findings in the left breast in the area of concern. BREAST DENSITY: b. There are scattered areas of fibroglandular density. BIRAD: ASSESSMENT: 1 Negative. RECOMMENDATION: RECOMMENDED FOLLOW UP: Birads 1 or 2: No breast imaging finding to explain the patie nt's presenting complaint. Further intervention should be based on the degree of clinical suspicion. SPECIFIC INTERVENTION/IMAGING/CONSULTATION RECOMMENDED:No additional intervention/ imaging/consultati on needed at this time. COMMUNICATION:The imaging findings were not discussed with the patient. Her referring provider has be en notified of the findings. COMMENT: The patient has been notified of the results by letter per MQSA requirements. Additional no tification policies are in place for contacting patient with suspicious or incomplete findings. Quality ID #225: The [employer] recommends an annual screening mammogram for women aged 40 years or over. This facility utilizes a reminder system to ensure that all patients receive reminder letters, and/or direct phone calls for appointments. This includes reminders for routine scr eening mammograms, diagnostic mammograms, or other Breast Imaging Interventions when appropriate. Th is patient will be placed in the appropriate reminder system. TECHNICAL DOCUMENTATION: FINDING NUMBER: (1) ASSESSMENT: (1) JOB ID: [id number] 2010 [employer]- All Rights Reserved Reading location - IP/workstation name: [email or web address]
--- NOTE | 2020-09-02 14:54 | WOMENS IMAGING REPORT ---
EXAM DESCRIPTION: BILAT DIAGNOSTIC MAMMO W/CAD; U/S BREAST UNILATERAL, COMPL IMAGES COMPLETED DATE/TIME: 09/02/2020 12:41 pm; 09/02/2020 1:42 pm REASON FOR STUDY: N63.20 UNSPECIFIED LUMP IN THE LEFT BREAST, UNSPECIFIED QUADRANT; LT BREAST N63.20 N63.20 UNSPECIFIED LUMP IN THE LEFT BREAST, UNSPECIFIED QUAD N94.10 UNSPECIFIED DYSPAREUNIA COMPARISON: None. EXAM PARAMETERS: Standard craniocaudal and mediolateral oblique views of each breast recorded using digital acquisition. Spot compression CC images of both breasts and true lateral and spot compression lateral images of th e left breast acquired. Read with the assistance of CAD: .[employer] Credit Verifier Version 9.2 LIMITATIONS: None. FINDINGS: RIGHT BREAST MASSES: No suspicious masses. CALCIFICATIONS: No new or suspicious calcifications. ARCHITECTURAL DISTORTION: None. ASYMMETRY: None noted. OTHER: No other significant findings. LEFT BREAST MASSES: No suspicious masses. CALCIFICATIONS: No new or suspicious calcifications. ARCHITECTURAL DISTORTION: None. ASYMMETRY: None noted. OTHER: No other significant finding. BREAST ULTRASOUND: TECHNIQUE: Static and dynamic grayscale images acquired of the entire left breast. Selected color Do ppler images recorded. ELASTOGRAPHY PERFORMED: No. LIMITATIONS: None. FINDINGS: MASS: No mass identified. Normal glandular tissue. ELASTOGRAPHY CHARACTERISTICS:Not applicable. OTHER: No other significant finding. IMPRESSION: Negative bilateral mammogram and left breast ultrasound. No worrisome mammographic or s onographic findings in the left breast in the area of concern. BREAST DENSITY: b. There are scattered areas of fibroglandular density. BIRAD: ASSESSMENT: 1 Negative. RECOMMENDATION: RECOMMENDED FOLLOW UP: Birads 1 or 2: No breast imaging finding to explain the patie nt's presenting complaint. Further intervention should be based on the degree of clinical suspicion. SPECIFIC INTERVENTION/IMAGING/CONSULTATION RECOMMENDED:No additional intervention/ imaging/consultati on needed at this time. COMMUNICATION:The imaging findings were not discussed with the patient. Her referring provider has be en notified of the findings. COMMENT: The patient has been notified of the results by letter per MQSA requirements. Additional no tification policies are in place for contacting patient with suspicious or incomplete findings. Quality ID #225: The [employer] recommends an annual screening mammogram for women aged 40 years or over. This facility utilizes a reminder system to ensure that all patients receive reminder letters, and/or direct phone calls for appointments. This includes reminders for routine scr eening mammograms, diagnostic mammograms, or other Breast Imaging Interventions when appropriate. Th is patient will be placed in the appropriate reminder system. TECHNICAL DOCUMENTATION: FINDING NUMBER: (1) ASSESSMENT: (1) JOB ID: [id number] 2010 [employer]- All Rights Reserved Reading location - IP/workstation name: [email or web address]
--- NOTE | 2020-09-02 14:56 | WOMENS IMAGING REPORT ---
EXAM DESCRIPTION: TRANSVAGINAL ULTRASOUND IMAGES COMPLETED DATE/TIME: 09/02/2020 1:42 pm REASON FOR STUDY: N94.10 UNSPECIFIED DYSPAREUNIA N63.20 UNSPECIFIED LUMP IN THE LEFT BREAST, UNSPEC IFIED QUAD N94.10 UNSPECIFIED DYSPAREUNIA COMPARISON: None. TECHNIQUE: Dynamic and static grayscale images acquired of the pelvis via transvaginal approach and recorded on PACS. Additional selected color Doppler and spectral images recorded. LIMITATIONS: None. FINDINGS: UTERUS: Contour normal. No mass. ENDOMETRIAL STRIPE: No focal or generalized thickening. No masses. CERVIX: 2 cm nabothian cyst. RIGHT OVARY AND DOPPLER: Normal size. No worrisome masses. Normal arterial vascular flow without evid ence for torsion. LEFT OVARY AND DOPPLER: Normal size. No worrisome masses. Normal arterial vascular flow without evide nce for torsion. FREE FLUID: None noted. OTHER: No other significant finding. MEASUREMENTS: UTERUS: 5.1 x 6.1 x 9.9 cm. ENDOMETRIAL STRIPE: 1.6 cm. RIGHT OVARY: 1.6 x 2.2 x 2.8 cm. LEFT OVARY: 2.2 x 2.3 x 2.9 cm. IMPRESSION: NORMAL TRANSVAGINAL PELVIC ULTRASOUND. TECHNICAL DOCUMENTATION: JOB ID: [id number] 2010 [employer]- All Rights Reserved Reading location - IP/workstation name: [email or web address]
== END ==
LOC: WI 12:16
PROVIDERS: ATTEND Nurse Practitioner Family
DX: R92.2 Inconclusive mammogram (principal); N94.10 Unspecified dyspareunia
CPT/HCPCS: 76641; 76830; 77066